=== PATIENT | male | born 1990 | race African-American/Black ===

== ENCOUNTER 2025-01-28 04:45 | Inpatient (IN) | payer OTHER ==
[~2025-01-28] VITALS: Ht 175.3 cm; Wt 86.2 kg
[2025-01-28 06:20] LABS: BASOPHILS % (AUTO) 0.7 % (0.0-2.0); EOSINOPHILS % (AUTO) 1.1 % (1.0-6.0); HEMATOCRIT 43.3 % (41-53); HEMOGLOBIN 14.6 g/dL (13.5-17.5); LYMPHOCYTES # (AUTO) 1.7 K/uL (1.0-4.8); LYMPHOCYTES % (AUTO) 36.4 % (22.0-44.0); MEAN CORPUSCULAR HEMOGLOBIN 30.4 pg (26.0-34.0); MEAN CORPUSCULAR HGB CONC 33.7 G/dL (31.0-37.0); MEAN CORPUSCULAR VOLUME 90 fL (80-100); MONOCYTES # (AUTO) 0.4 K/uL (0.1-1.0); NEUTROPHILS # (AUTO) 2.5 K/uL (1.8-7.7); NEUTROPHILS % (AUTO) 53.8 % (40.0-70.0); PLATELET COUNT (AUTO) 180 K/uL (150-450); RED CELL DISTRIBUTION WIDTH 12.9 % (11.5-14.5); WHITE BLOOD COUNT (AUTO) 4.7 K/uL (4.5-11.0)
[2025-01-28 06:35] LABS: ANION GAP 1 mmol/L (8-16); CALCIUM, TOTAL 9.5 mg/dL (8.8-10.5); CARBON DIOXIDE 32 mmol/L (22-29); CHLORIDE 106 mmol/L (98-107); CREATININE 1.38 mg/dL (0.60-1.30); GLOMERULAR FILTR. RATE CALC > 60 mL/min (>60); GLUCOSE,RANDOM 90 mg/dL (70-110); POTASSIUM 4.6 mmol/L (3.5-5.1); SODIUM SERUM 139 mmol/L (136-145); UREA NITROGEN, BLOOD 10 mg/dL (7-18)
[2025-01-28 06:51] LABS: CREATINE KINASE, TOTAL ONLY 1402 U/L (39-308)
[2025-01-28] MEDS: SODIUM CHLORIDE 0.9% 2,000 ML IV ONE (08:05)
[2025-01-28] MEDS: SODIUM CHLORIDE 0.9% 1,000 ML IV ONE ×2 (09:08→12:04)
[2025-01-28 09:10] VITALS: BP 134/72; PULSE 43; RESP 18; TEMP 97.5; O2SAT 100
[2025-01-28] MEDS ORDERED: BISACODYL 10 MG RECTAL RECTAL SUPPOSITORY PR PRN (11:15)
[2025-01-28] MEDS ORDERED: ZOLPIDEM TARTRATE 5 MG TABLET PO PRN (11:15)
[2025-01-28] MEDS ORDERED: MORPHINE SULFATE 2 MG/ML SYRINGE IVP PRN (11:15)
[2025-01-28] MEDS ORDERED: ONDANSETRON HCL 4 MG/2 ML VIAL IVP PRN (11:15)
[2025-01-28] MEDS ORDERED: MAGNESIUM HYDROXIDE SUSPENSION 30 ML UDCUP PO PRN (11:15)
[2025-01-28] MEDS ORDERED: ACETAMINOPHEN 325 MG TABLET PO PRN (11:15)
[2025-01-28] MEDS ORDERED: HYDROCODONE/ACETAMINOPHEN 5-325 MG TABLET PO PRN (11:15)
[2025-01-28] MEDS: HEPARIN SODIUM,PORCINE 5,000 UNITS/ML VIAL SQ SCH (16:40)
[2025-01-28 19:47] VITALS: BP 122/75; PULSE 67; RESP 20; TEMP 98.2; O2SAT 98
[2025-01-28] MEDS: DOCUSATE SODIUM 100 MG CAPSULE PO SCH (20:45)
[2025-01-28 23:15] VITALS: PULSE 107; O2SAT 100
[2025-01-28] MEDS: LORazepam 2 MG/ML VIAL IVP ONE (23:20)
[2025-01-28] MEDS: LevETIRAcetam 1,000 MG in DEXTROSE 5%-WATER 100 ML IV ONE (23:28)
[2025-01-29 00:20] VITALS: BP 117/61; PULSE 66; RESP 18; TEMP 97.9; O2SAT 97
[2025-01-29 02:31] LABS: GLUCOMETER DEV NAME(LOC) 5N.2C; GLUCOSE,POINT OF CARE 100 MG/DL (70-110)
[2025-01-29 04:00] VITALS: BP 111/66; PULSE 68; RESP 18; TEMP 97.7; O2SAT 100
[2025-01-29 06:52] LABS: BASOPHILS % (AUTO) 0.5 % (0.0-2.0); EOSINOPHILS % (AUTO) 1.5 % (1.0-6.0); HEMOGLOBIN 13.7 g/dL (13.5-17.5); LYMPHOCYTES # (AUTO) 1.5 K/uL (1.0-4.8); LYMPHOCYTES % (AUTO) 33.7 % (22.0-44.0); MEAN CORPUSCULAR HEMOGLOBIN 30.1 pg (26.0-34.0); MEAN CORPUSCULAR HGB CONC 33.3 G/dL (31.0-37.0); MEAN CORPUSCULAR VOLUME 91 fL (80-100); MONOCYTES # (AUTO) 0.3 K/uL (0.1-1.0); MONOCYTES % (AUTO) 6.9 % (2.0-9.0); NEUTROPHILS # (AUTO) 2.6 K/uL (1.8-7.7); NEUTROPHILS % (AUTO) 57.4 % (40.0-70.0); PLATELET COUNT (AUTO) 165 K/uL (150-450); RED BLOOD CELL COUNT(AUTO) 4.53 MIL/uL (4.50-5.90); RED CELL DISTRIBUTION WIDTH 12.4 % (11.5-14.5); WHITE BLOOD COUNT (AUTO) 4.5 K/uL (4.5-11.0)
[2025-01-29 06:55] LABS: GLUCOMETER DEV NAME(LOC) 6S.2; GLUCOSE,POINT OF CARE 105 MG/DL (70-110)
[2025-01-29 07:12] LABS: ANION GAP 7 mmol/L (8-16); CALCIUM, TOTAL 8.6 mg/dL (8.8-10.5); CARBON DIOXIDE 27 mmol/L (22-29); CHLORIDE 105 mmol/L (98-107); CREATININE 1.06 mg/dL (0.60-1.30); GLOMERULAR FILTR. RATE CALC > 60 mL/min (>60); GLUCOSE,RANDOM 82 mg/dL (70-110); POTASSIUM 3.9 mmol/L (3.5-5.1); SODIUM SERUM 139 mmol/L (136-145); UREA NITROGEN, BLOOD 9 mg/dL (7-18)
[2025-01-29 07:47] VITALS: BP 117/71; PULSE 69; RESP 18; TEMP 97.7; O2SAT 100
[2025-01-29] MEDS: PANTOPRAZOLE SODIUM 40 MG DR TABLET PO SCH (08:43)
[2025-01-29 10:03] LABS: CREATINE KINASE, TOTAL ONLY 648 U/L (39-308)
[2025-01-29] MEDS: SODIUM CHLORIDE 0.9% 1,000 ML IV ONE (12:26)
[2025-01-29 13:54] LABS: AMPHET/METH SCREEN,URINE NEGATIVE (NEGATIVE); BARBITURATE SCREEN, URINE NEGATIVE (NEGATIVE); BENZODIAZEPINES SCREEN,URINE NEGATIVE (NEGATIVE); CANNABINOID SCREEN,URINE NEGATIVE (NEGATIVE); COCAINE SCREEN,URINE NEGATIVE (NEGATIVE); METHADONE SCREEN, URINE NEGATIVE (NEGATIVE); OPIATE SCREEN,URINE NEGATIVE (NEGATIVE); PHENCYCLIDINE SCREEN,URINE NEGATIVE (NEGATIVE)
[2025-01-29 13:55] LABS: ALCOHOL, URINE DRUG SCREEN NEGATIVE (NEGATIVE)
[2025-01-29 15:12] VITALS: BP 112/65; PULSE 74; RESP 18; TEMP 97.3; O2SAT 95
[2025-01-29 20:00] VITALS: BP 126/67; PULSE 80; RESP 19; TEMP 98.4; O2SAT 99
[2025-01-30 04:00] VITALS: BP 134/63; PULSE 61; RESP 18; TEMP 97.9; O2SAT 100
[2025-01-30 09:16] VITALS: BP 105/64; PULSE 82; RESP 18; TEMP 98.2; O2SAT 99
[2025-01-30 11:48] VITALS: BP 109/56; PULSE 70; RESP 18; TEMP 98.1; O2SAT 99
[2025-01-30] MEDS ORDERED: LORazepam 2 MG/ML VIAL ONE (12:00)
[2025-01-30] MEDS: SODIUM CHLORIDE 0.9% 1,000 ML IV ONE (13:54)
[2025-01-30 16:54] VITALS: BP 135/66; PULSE 61; RESP 18; TEMP 98.6; O2SAT 98
[2025-01-30 20:00] VITALS: BP 108/65; PULSE 62; RESP 18; TEMP 98.4; O2SAT 99
[2025-01-31 00:03] VITALS: BP 96/70; PULSE 57; RESP 16; TEMP 98.1; O2SAT 100
[2025-01-31 04:16] VITALS: BP 130/68; PULSE 59; RESP 17; TEMP 98.2; O2SAT 100
[2025-01-31 08:00] VITALS: BP 120/64; PULSE 59; RESP 18; TEMP 98; O2SAT 100
[2025-01-31 12:25] VITALS: BP 101/63; PULSE 60; RESP 18; TEMP 98.4; O2SAT 99
[2025-01-31 16:38] VITALS: BP 122/83; PULSE 59; RESP 18; TEMP 98.4; O2SAT 100
== END 2025-01-31 17:45 | DRG 557 ==
LOC: EMS 04:54 → EDH 07:29 → 6S 08:58 → 5N 01-29 01:08
PROVIDERS: ADMIT Internal Medicine; ATTEND Internal Medicine
PROC: 4A00X4Z Measurement of Central Nervous Electrical Activity, External Approach (ICD-10-PCS; principal; 2025-01-29)
DX: M62.82 Rhabdomyolysis (principal); N17.0 Acute kidney failure with tubular necrosis; F19.10 Other psychoactive substance abuse, uncomplicated; R56.9 Unspecified convulsions; F14.90 Cocaine use, unspecified, uncomplicated; Z87.891 Personal history of nicotine dependence; Z76.5 Malingerer [conscious simulation]
CPT/HCPCS: 70450; 70551; 80048; 80307; 82550; 82962; 85025; 95816; 99285; J0712; J1644; J2060; J7030; J7060